=== PATIENT | male | born 1945 | race Caucasian/White ===

== ENCOUNTER 2020-12-08 08:47 | Day surgery (SDC) | payer OTHER, MEDICARE ==
[~2020-12-08 08:47] MED LIST: PROPOFOL INJ 200 MG/20 ML VIAL IV ONE
[2020-12-08] MEDS ORDERED: METOPROLOL SUCCINATE 25 MG TAB.SR.24H PO ONE (10:30)
--- NOTE | 2020-12-08 10:47 | PDOC CONSULTATION ---
Consultation Consult Date: 12/08/20 Attending physician:: EDD HOFFMAN Provider Consulted: RICHIE MIKE Consult reason:: Atrial fibrillation History of Present Illness Patient complains of: Atrial fibrillation History of Present Illness: FRANCISCO JAVIER BRAVO JR is a 75 year old male, who was noted to be in atrial fibrillation in the recovery room after having had a colonoscopy. Patient describes history of atrial fibrillation. He claims to be on Eliquis. He is also on carvedilol and other antihypertensive medication. He describes having had a echocardiogram about a month ago. He claims he is scheduled for a MRI of the heart at [facility] in the next few weeks. Patient does see Dr. Manzo who is a physical fitness trainer at the [facility]. In the recovery room he was noted to have atrial fibrillation with somewhat rapid heart rate response of 110 bpm but otherwise noted to be comfortable without any chest pain or any respiratory distress. His blood pressure was noted to be 135/80. Past Medical History Cardiac Medical History: Reports: Atrial Fibrillation, Hypertension Denies: Myocardial Infarction Pulmonary Medical History: Denies: Asthma, Bronchitis, Chronic Obstructive Pulmonary Disease (COPD), Pneumonia Neurological Medical History: Denies: Seizures Musculoskeltal Medical History: Denies: Arthritis Hematology: Denies: Anemia Social History Information Source: Patient - Negative for tobacco alcohol or illicit drug abuse. Smoking Status: Never Smoker Family History Family History: None Parental Family History Reviewed: Yes Children Family History Reviewed: Yes Sibling(s) Family History Reviewed.: Yes Medication/Allergy Home Medications: Amlodipine Besylate/Benazepril [Amlodipine-Benazepril 10-40 mg] 1 cap PO DAILY 12/07/20 Apixaban [Eliquis 5 mg Tablet] 5 mg PO BID 12/07/20 Atorvastatin Calcium [Lipitor] 40 mg PO QHS 12/07/20 Carvedilol [Coreg] 40 mg PO BID 12/07/20 Cholecalciferol (Vitamin D3) [Vitamin D3 1000 Unit Tablet] 50,000 unit PO DAILY 12/07/20 Empagliflozin [Jardiance] 25 mg PO DAILY 12/07/20 Sitagliptin Phos/Metformin HCl [Janumet 50-500 mg Tablet] 1 tab PO BID 12/07/20 Allergies/Adverse Reactions: No Known Allergies Allergy (Verified 12/07/20 12:44) Review of Systems Constitutional: ABSENT: chills, fever(s), headache(s), weight gain, weight loss Eyes: ABSENT: visual disturbances Ears: ABSENT: hearing changes Cardiovascular: PRESENT: dyspnea on exertion. ABSENT: chest pain, edema, orthropnea, palpitations Respiratory: ABSENT: cough, hemoptysis Gastrointestinal: PRESENT: other - Just finished colonoscopy which showed diverticulosis and minor hemorrhoids.. ABSENT: abdominal pain, constipation, diarrhea, hematemesis, hematochezia, nausea, vomiting Genitourinary: ABSENT: dysuria, hematuria Musculoskeletal: ABSENT: joint swelling Integumentary: ABSENT: rash, wounds Neurological: ABSENT: abnormal gait, abnormal speech, confusion, dizziness, focal weakness, syncope Psychiatric: ABSENT: anxiety, depression, homidical ideation, suicidal ideation Endocrine: ABSENT: cold intolerance, heat intolerance, polydipsia, polyuria Hematologic/Lymphatic: ABSENT: easy bleeding, easy bruising Physical Exam Vital Signs: Temp Pulse Resp BP Pulse Ox 98.0 F 84 17 125/77 98 12/08/20 09:50 12/08/20 10:05 12/08/20 10:05 12/08/20 10:05 12/08/20 10:05 Intake & Output 12/07/20 12/08/20 12/09/20 06:59 06:59 06:59 Intake Total 400 Balance 400 Weight 100.24 kg Exam: GENERAL: well-nourished and in no acute distress. Alert and oriented x3 HEAD: Atraumatic, normocephalic. EYES: MAE, sclera anicteric, conjunctiva are normal. ENT: Moist mucous membranes. No oral ulcerations or bleeding gums noted. No obvious ear, nose or throat abnormalities noted. NECK: supple without lymphadenopathy. Trachea is central. No cervical or axillary lymphadenopathy noted. Carotids are 2+, JVD WNL LUNGS: Breath sounds clear bilaterally. No wheezes rales or rhonchi noted. No significant dullness noted on percussion. CHEST: Palpation of the chest wall shows no significant chest wall tenderness. HEART: [place] [employer]IST[employer] SUPPORT, No PSH, 1/6 JAYANT aortic area, 1/6 canales systolic murmur mitral area, no rubs, no gallops. ABDOMEN: Soft, no significant tenderness appreciated, normoactive bowel sounds. No guarding, no rebound. No rigidity noted . No masses appreciated. EXTREMITIES: Pedal pulses are 1-2+, no calf tenderness noted. No clubbing or cyanosis. negative pedal edema noted NEUROLOGICAL: Focused neurological exam showed no significant neurologic deficit. Normal speech, no focal weakness appreciated. PSYCH: Normal mood, normal affect. Judgment and insight within normal limits. SKIN: No significant ecchymosis, skin is noted to be warm. MUSCULOSKELETAL EXAM: No significant acute joint swelling noted. Results EKG Comments: Atrial fibrillation with controlled ventricular response. No acute ST-T wave changes are noted. Occasional VPCs noted. Assessment & Plan - Diagnosis (1) Atrial fibrillation Qualifiers: Atrial fibrillation type: unspecified Qualified Code(s): I48.91 - Unspecified atrial fibrillation Is this a current diagnosis for this admission?: Yes (2) Hypertension Qualifiers: Hypertension type: essential hypertension Qualified Code(s): I10 - Essential (primary) hypertension Is this a current diagnosis for this admission?: Yes (3) Obesity (BMI 30-39.9) Is this a current diagnosis for this admission?: Yes - Notes Notes: Patient was noted to have atrial fibrillation. There is no prior EKG to compare with but I did not see any acute ST-T wave changes. Patient does give history o f atrial fibrillation. It is not clear if it is chronic or not. However patient is on Eliquis therapy. He is also on carvedilol XR for rate control. At this point have given orders to give patient 25 mg of metoprolol tartrate and 10 patient could be allowed to go home. Patient was told that if his heart rate stays above 90 at rest, he could start carvedilol this morning and resume his regular dose. Informed that he might benefit from a traffic monitor specialist and also a sleep study. Patient has high blood pressure but this is under good control. Discussed association of obesity and sleep apnea as well as hypertension with atrial fibrillation. Patient under care of a physical fitness trainer therefore well taken care of however if he did not have a sleep study in the past, it may be worthwhile to consider getting this done. As usual I thank Dr. Bazan very much for the kind consultation. Patient was advised to follow-up with his regular physical fitness trainer within a week. - Time Time Spent: 30 to 50 Minutes Medications reviewed and adjusted accordingly: Yes
[2020-12-08 11:53] VITALS: BP 136/81
--- NOTE | 2020-12-08 11:56 | Operative Report ---
Operative Report DATE OF SURGERY: 12/08/20 Operative Report: The risk, benefits and alternatives of the procedure including the risk of bleeding, perforation requiring surgery have been explained to the patient in detail and informed consent has been obtained. Patient is taken back to the operating room and placed in a left, lateral decubital position. Timeout was called. Propofol medication is administered. Rectal examination is done which did not reveal any masses, tears or fissures. An Olympus videoscope was introduced into the patient's rectum. Scope was then carefully advanced all the way to the cecum. Cecum was identified by the usual anatomical landmarks of the ileocecal valve as well as the appendiceal office. Photodocumentation is obtained. Scope was then sequentially pulled back via the various segments of the colon including the ascending colon, hepatic flexure, transverse colon, splenic flexure, descending colon and finally into the rectosigmoid portions of the colon. Retroflexion maneuver is performed. PREOPERATIVE DIAGNOSIS: Colorectal cancer screening POSTOPERATIVE DIAGNOSIS: Right side colon Inflammation status post biopsy. Diverticulosis without any evidence of diverticulitis. Internal hemorrhoids OPERATION: Colonoscopy with biopsy SURGEON: EDD HOFFMAN ANESTHESIA: LMAC TISSUE REMOVED OR ALTERED: As noted above. COMPLICATIONS: None. ESTIMATED BLOOD LOSS: None. INTRAOPERATIVE FINDINGS: As noted above. PROCEDURE: Patient tolerated the procedure well. No immediate postprocedure complications are noted. Patient is discharged in good condition. Discharge date 12/08/2020. Discharge diet: Regular. Discharge activity: Regular. 2 to 3-week follow-up to discuss findings. Patient is instructed to call the office or proceed to the emergency room should there be any further problems questions. Wait on the pathology. Would recommend 5-year surveillance colonoscopy.
--- NOTE | 2020-12-08 19:25 | EKG REPORT ---
SEVERITY:- ABNORMAL ECG - ATRIAL FIBRILLATION, V-RATE 57-81 BORDERLINE LEFT AXIS DEVIATION NONSPECIFIC T ABNORMALITIES, LATERAL LEADS : Confirmed by: Nuvia Naqvi MD 08-Dec-2020 19:24:37
== END 2020-12-08 10:38 | disposition home or self-care (01) ==
LOC: END 08:47
PROVIDERS: ATTEND Internal Medicine Gastroenterology
DX: Z12.11 Encounter for screening for malignant neoplasm of colon (principal); K64.8 Other hemorrhoids; K52.9 Noninfective gastroenteritis and colitis, unspecified; K57.30 Diverticulosis of large intestine without perforation or abscess without bleeding; I48.91 Unspecified atrial fibrillation; Z79.01 Long term (current) use of anticoagulants; I10 Essential (primary) hypertension; Z79.899 Other long term (current) drug therapy; Z79.84 Long term (current) use of oral hypoglycemic drugs; E66.9 Obesity, unspecified; E11.9 Type 2 diabetes mellitus without complications; G47.33 Obstructive sleep apnea (adult) (pediatric); Z68.39 Body mass index [BMI] 39.0-39.9, adult; Z01.812 Encounter for preprocedural laboratory examination; Z20.822 Contact with and (suspected) exposure to COVID-19; Z86.010 Personal history of colon polyps; F17.210 Nicotine dependence, cigarettes, uncomplicated; Z12.12 Encounter for screening for malignant neoplasm of rectum; Z90.49 Acquired absence of other specified parts of digestive tract; Z85.828 Personal history of other malignant neoplasm of skin
CPT/HCPCS: 45380; 82962; 87635; 88305 ×2; 93005; 93010; 00812; J2704; C9803; 812